=== PATIENT | female | born 1975 | race Two or more races ===

== ENCOUNTER → 2024-05-21 | Outpatient (CLI) | payer MEDICAID, SELFPAY ==
[2024-05-21 11:22] LABS: HCG,Qualitative Serum Negative
[2024-05-21 11:35] LABS: Anion Gap 9 (7-16); BUN/Creatinine Ratio 16 Ratio (12-20); Blood Urea Nitrogen 11 mg/dL (9-23); Calcium 9.8 mg/dL (8.3-10.6); Calcium (Corrected) 9.8 mg/dL (8.5-10.1); Carbon Dioxide 25.9 mMol/L (20.0-31.0); Chloride 106 mMol/L (98-107); Creatinine (Component) 0.7 mg/dL (0.6-1.3); Glucose 130 mg/dL (74-106); Osmolality,Calculated 282 (275-295); Phosphorous 3.1 mg/dL (2.4-5.1); Potassium 4.3 mMol/L (3.4-5.1); Sodium 141 mMol/L (136-145); eGFR > 60 See Note
--- NOTE | 2024-05-21 14:00 | XR_ITS ---
Examination: CT chest with intravenous contrast CT chest without intravenous contrast 2-D reconstructions Date and time of exam:May 21, 2024 at 1520 hrs. Indications: Palpable lump and swelling in the chest on the left side clavicle 3 years CTDI:vol (mGy) 25.2 DLP: (mGycm) 875 Technique: Multiple axial sections of the thorax have been obtained. 3 mm slice thickness, from the hemidiaphragms to above the apices of the lungs. Mediastinal and lung density settings have been obtained. Intravenous contrast administered 60 cc [id number]. Noncontrast images have also been obtained. 2-D sagittal coronal images obtained. Low dose protocols were performed. One or more of the following dose reduction techniques were used; automated exposure control, adjustment of the mA and/or KV according to patient size, use of iterative reconstruction technique. Findings: Noncontrast CT images do not demonstrate intramural hematoma. No thoracic aortic aneurysm dilatation Pulmonary artery segments are not enlarged No paratracheal tracheobronchial or bronchopulmonary adenopathy Supraclavicular retroclavicular adenopathy is not depicted No pneumonia, pulmonary edema or pleural disease Clavicles ribs thoracic vertebral bodies appear intact No visualized liver or splenic lesion Absent gallbladder Kidneys partially visualized no hydronephrosis Impression: No mediastinal lymphadenopathy No pneumonia, pulmonary edema, pleural disease or pulmonary nodules Recommend ultrasound soft tissue of any palpable left chest wall lump
== END | disposition home or self-care (01) ==
DX: R22.2 Localized swelling, mass and lump, trunk (principal); R79.89 Other specified abnormal findings of blood chemistry
CPT/HCPCS: 36415; 71270; 80069; 84703; A4649; Q9967

== ENCOUNTER → 2024-08-20 | Outpatient (CLI) | payer MEDICAID, SELFPAY ==
--- NOTE | 2024-08-20 13:30 | XR_ITS ---
Examination: Screening digital mammography, bilateral Computer aided detection 3-D breast Tomosynthesis, bilateral Date and time of exam: August 20, 2024 1343 hours Compared to mammograms dating to May 30, 2016 Indication: Screening Technique: Nonmagnified MLO, CC views of the breasts to been obtained, reconstructed from 3-D Tomosynthesis images. R2 computer aided detection program utilized for evaluation of suspicious masses and/or abnormal calcifications. 3-D Tomosynthesis images obtained. Findings: The breasts are heterogeneously dense, which may obscure small masses Benign calcifications. No suspicious masses Impression: BI-RADS category II: Benign Findings. Recommend 1 year follow-up mammogram. Given the patient's history of bilateral breast discharge, recommend bilateral breast sonography follow-up
== END | disposition home or self-care (01) ==
LOC: CDIM 13:27
PROVIDERS: Referring Provider Physician Assistant Medical; Visit Provider Physician Assistant Medical
DX: Z12.31 Encounter for screening mammogram for malignant neoplasm of breast (principal); R92.1 Mammographic calcification found on diagnostic imaging of breast; R92.333 Mammographic heterogeneous density, bilateral breasts
CPT/HCPCS: 77063; 77067